=== PATIENT | female | born 1940 | race Caucasian/White ===

== ENCOUNTER → 2017-10-10 17:15 | Observation (INO) ==
[2017-10-09 13:33] VITALS: BMI 25.7
--- NOTE | 2017-10-09 14:07 | Cardiology History & Physical ---
History of Present Illness Chief complaint: Dyspnea on exertion HPI: Mary Jane is a 77 year old female who is known to Dr. Koroma with a history of LINDSEY , HTN, Pulmonary HTN, nonrheumatic mitral and tricuspid regurgitation and precordial pain. She was last seen in the clinic by Dr. Koroma on 10/06/17 when she was referred to him for an abnormal echo and complaints of SOA with walking or inclines. She was scheduled for an outpatient VQ scan today which was probable for pulmonary embolism, followed by an echo where her PAP was found to be elevated. She is admitted for observation and anticoagulation with Lovenox. Review of Systems - Constitutional Constitutional: Present: fatigue. Absent: chills, fever(s) - EENMT Eyes: Absent: change in vision Balance: Absent: vertigo Mouth/Throat: Absent: sore throat - Cardiovascular Cardiovascular: Present: chest pain, dyspnea on exertion. Absent: palpitations , syncope, orthopnea, edema Rhythm: Absent: abnormal rhythm Vascular: Absent: pedal edema - Respiratory Respiratory: Present: dyspnea, dyspnea on exertion. Absent: cough - Gastrointestinal Gastrointestinal: Absent: constipation, diarrhea, nausea, vomiting - Genitourinary Genitourinary: Absent: dysuria - Musculoskeletal Musculoskeletal: Absent: myalgias - Integumentary/Breasts Integumentary: Absent: rash - Neurological Neurological: Absent: dizziness - Endocrine Endocrine: Absent: palpitations PFSH Patient Stated Medical History Cataracts Yes: sadia eyes Hypertension Yes Other Cardiology Yes: mitral valve prolapse Pulmonary Embolism Yes: current admisson Gastroesophageal Reflux Yes: no meds for it Disease Other Musculoskeletal Yes: arthritis Chronic Pelvic Pain Yes: from previous pelvis fx Surgical History: Hysterectomy. Bunionectomy. Hip replacement. cataract extraction Family History: Father - [place] Mother - CHF, HLD - Social History Smoking status: Never smoker Substance use type: does not use Alcohol intake frequency: holidays/special occasions only Housing: house Household members: none Current occupational status: retired Current residence: Apartment/Private Home Medications Home Medications Medication Instructions Recorded Confirmed Type Aspirin 1 tab PO DAILY #0 tab 05/07/15 10/09/17 History Atenolol 25 mg PO HS #0 tab 05/07/15 10/09/17 History Calcium Carbonate/Vitamin D3 600 mg PO DAILY #0 05/07/15 10/09/17 History [Calcium 600-Vit D3 200 Tablet] Cholecalciferol (Vitamin D3) 1 tab PO DAILY #0 05/07/15 10/09/17 History [Vitamin D3] Lisinopril 20 mg PO DAILY #0 tab 05/07/15 10/09/17 History Niacin (Inositol Niacinate) 1 cap PO DAILY #0 05/07/15 10/09/17 History [Niacin 500 mg Capsule] [place]-3 Fatty Acids/Fish Oil [Fish 1,000 mg PO DAILY #0 cap 05/07/15 10/09/17 History Oil 1,000 mg Capsule] hydroCHLOROthiazide 1 tab PO WB #0 tab 05/07/15 10/09/17 History [Hydrochlorothiazide] Atenolol [Tenormin] 25 mg PO AM 10/09/17 10/09/17 History Biotin 5,000 mcg PO DAILY 10/09/17 10/09/17 History Magnesium 250 mg PO DAILY 10/09/17 10/09/17 History Mecobalamin [B-12] 1,000 mcg SL DAILY 10/09/17 10/09/17 History Melatonin/Pyridoxine HCl (B6) 5 mg PO HS 10/09/17 10/09/17 History [Melatonin 5 mg Tablet] Multivitamin/Iron/Folic Acid 1 each PO DAILY 10/09/17 10/09/17 History [Centrum Adults Tablet] Potassium 99 mg PO DAILY 10/09/17 10/09/17 History Allergies Allergy/AdvReac Type Severity Reaction Status Date / Time No Known Allergies Allergy Verified 10/09/17 14:10 Exam Vital signs: Temperature 96.6 F L 10/09/17 13:40 Pulse Rate 53 L 10/09/17 13:40 Respiratory Rate 16 10/09/17 13:40 Blood Pressure 147/78 H 10/09/17 13:40 Pulse Oximetry 95 10/09/17 13:40 - Constitutional no acute distress, well nourished, cooperative - Routine HEENT Exam Head: Present: normocephalic ENT: Present: mucous membranes moist - Routine Neck Exam Absent: JVD, carotid bruit - Routine Chest/Breast/Axilla Exam Chest wall: Absent: tenderness - Routine Respiratory Exam Present: dyspnea, CTA bilaterally. Absent: rales, wheezes - Routine Cardiovascular Exam Present: RRR, murmur (II/). Absent: JVD - Routine Abdominal Exam Present: soft, normoactive bowel sounds - Routine Extremities Exam Present: no edema - Routine Skin Exam Present: intact, dry, warm - Routine Neurological Exam Present: alert, oriented X3 - Routine Psychiatric Exam Present: normal affect, normal thought process Results 10/10/17 01:16 10/10/17 01:16 Intake and Output 10/08/17 10/09/17 10/09/17 22:59 06:59 14:59 Other: Weight 134 lb 0.657 oz Patient Weight 10/10/17 06:59 Weight 134 lb 0.657 oz - Imaging and Cardiology Echo: pending Imaging & Cardiology Narrative: 10/09/17 14:12 Date of Exam: 10/09/17 Ordering Provider: Denis Koroma MD Type of Exam(s): XR chest 1V for NM procedure Reason for Exam(s): R06.02 SOB EXAM: Ventilation-Perfusion Scintigraphy. DATE: 10/09/2017 12:00 AM INDICATIONS: R06.02 SOB COMPARISON: Chest x-ray dated 10/09/2017 RADIOPHARMACEUTICAL: 44 mCi Technetium 99 M DTPA and 6.5 mCi Tc-99m MAA IV. FINDINGS: The ventilation images demonstrate near uniform distribution of activity on the initial breath and equilibrium phase images. The perfusion images demonstrate at least moderate size three wedge-shaped pleural-based mismatch photopenic defects in the left lung. There is a moderate size wedge-shaped pleural-based mismatch defect in the superior segment of the right lower lobe and a moderate to large wedge-shaped pleural-based mismatch defect in the right middle lobe. IMPRESSION: High probability for pulmonary embolism. EKG interpretations - EKG EKG results cardiology: sinus rhythm EKG shows: bradycardia - Blocks, axis, hypertrophy, ST abn AV and intraventricular conduction: 1 AV block Hospital Course This is a general summary of the patient's hospital course. For more details refer to the complete medical record. Time spent with patient: 25 - 35 minutes DVT Prophylaxis: Lovenox, Xarelto Assessment and Plan - Attestation Attestation Narrative: 10/10/17 13:06 Recommendation After examining the patient I agree with the above assessment. I am involved in the formulation of the patient's plan of care. - Assessment and Plan (1) Pulmonary embolism Current visit: Yes Status: Acute VQ Scan: High probability for pulmonary embolism. Echo with increased PAP - Admit for observation and anticoagulation - Start Lovenox 1mg/kg SQ then Xarelto 15mg BID for 21 days and then 20mg daily for skilled nursing coagulation. - Serial troponin (2) Shortness of breath Current visit: Yes Status: Chronic Reports ongoing LINDSEY for the past 1 year. - VQ Scan: High probability for pulmonary embolism. - Admit for observation - Plan to proceed with scheduled right and left heart cath on 10/20/17 (3) Essential (primary) hypertension Current visit: Yes Status: Chronic Continue home meds (4) Other secondary hypertension Current visit: Yes Status: Chronic (5) Nonrheumatic mitral valve insufficiency Current visit: Yes Status: Chronic (6) Non-rheumatic tricuspid valve insufficiency Current visit: Yes Status: Chronic - Assessment and Plan PE: VQ Scan: High probability for pulmonary embolism. Echo with increased PAP - Admit for observation and anticoagulation - Start Lovenox 1mg/kg SQ then Xarelto 15mg BID for 21 days and then 20mg daily for skilled nursing coagulation. - Serial troponin Dyspnea: Reports ongoing LINDSEY for the past 1 year. - VQ Scan: High probability for pulmonary embolism. - Admit for observation - Plan to proceed with scheduled right and left heart cath on 10/20/17 HTN: Continue home meds
--- OUTSIDE RECORDS SUMMARY | 2017-10-09 14:45 | External Medical Summary ---
:1940 Author Organization [employer] Care Team Providers Name Role Phone Dwight Meeks Provider Role Unavailable Allergies No Known Allergies Problems Problem Type Condition Code Onset Dates Condition Status Problem Essential (primary) hypertension I10 Active Problem Atrial Tachycardia 427.89 Active Problem Other specified cardiac arrhythmias I49.8 Active Problem Hypertension 401.9 Active Assessment Other specified cardiac arrhythmias I49.8 Active Medications Medication Code System Code Instructions Start Date End Date Status Dosage Atenolol [facility] [address] 50 MG Orally Once Jul 13, 1 tablet -01 a day 2014 Results No Known Results Summary Purpose [employer] Submission
[2017-10-09] MEDS: RIVAROXABAN 15 MG TABLET PO SCH (21:18)
[2017-10-09 23:58] VITALS: RESP 16
[2017-10-10] MEDS: ATENOLOL 50 MG TABLET PO SCH ×2 (07:15→08:38)
[2017-10-10 07:42] VITALS: BP 139/90; TEMP 96.6; O2SAT 94
[2017-10-10] MEDS: RIVAROXABAN 15 MG TABLET PO SCH (08:38)
--- NOTE | 2017-10-10 12:10 | Discharge Summary ---
<Carmen Cabral - Last Filed: 10/10/17 15:57> Discharge Information Date of admission: 10/09/17 13:20 Anticipated date of discharge: 10/10/17 Attending Physician: Denis Koroma MD Primary care physician: Emma Blackburn MD - Discharge Diagnosis (1) Shortness of breath Status: Chronic (2) Essential (primary) hypertension Status: Chronic (3) Other secondary hypertension Status: Chronic (4) Nonrheumatic mitral valve insufficiency Status: Chronic (5) Non-rheumatic tricuspid valve insufficiency Status: Chronic (6) Pulmonary embolism Status: Acute - Laboratory Labs: 10/10/17 01:16 10/10/17 01:16 Laboratory Results - last 24 hr 10/09/17 10/09/17 10/09/17 14:51 14:51 19:56 WBC 4.9 RBC 4.63 Hgb 14.7 Hct 43.7 MCV 94.4 MCH 31.7 MCHC 33.6 RDW Std Deviation 41.9 Plt Count 280 MPV 9.8 Immature Gran % (Auto) 0.2 Neut % (Auto) 55.9 Lymph % (Auto) 31.2 [place] % (Auto) 9.0 Eos % (Auto) 3.1 Baso % (Auto) 0.6 Neut # (Auto) 2.7 Lymph # (Auto) 1.5 [place] # (Auto) 0.4 Eos # (Auto) 0.2 Baso # (Auto) 0.0 Abs Immat Gran (auto) 0.01 Turbidity < 20 Sodium 140 Potassium 3.8 Chloride 102 Carbon Dioxide 27 Anion Gap 11 BUN 18.0 H Creatinine 0.8 GFR Calculation 69 BUN/Creatinine Ratio 23 Glucose 88 Calculated Osmolality 270 Calcium 9.9 Magnesium Icterus Index < 2 Troponin I < 0.012 < 0.012 Specimen Hemolysis 22 < 15 10/10/17 10/10/17 10/10/17 01:16 01:16 01:16 WBC 4.7 RBC 4.39 Hgb 14.0 Hct 41.6 MCV 94.8 MCH 31.9 MCHC 33.7 RDW Std Deviation 41.7 Plt Count 273 MPV 9.2 L Immature Gran % (Auto) Neut % (Auto) Lymph % (Auto) [place] % (Auto) Eos % (Auto) Baso % (Auto) Neut # (Auto) Lymph # (Auto) [place] # (Auto) Eos # (Auto) Baso # (Auto) Abs Immat Gran (auto) Turbidity < 20 Sodium 138 Potassium 3.8 Chloride 102 Carbon Dioxide 27 Anion Gap 9 BUN 18.0 H Creatinine 0.8 GFR Calculation 69 BUN/Creatinine Ratio 23 Glucose 88 Calculated Osmolality 267 Calcium 9.6 Magnesium 1.8 Icterus Index < 2 Troponin I < 0.012 Specimen Hemolysis < 15 < 15 - Radiology Radiology: Date of Exam: 10/09/17 Ordering Provider: Denis Koroma MD Type of Exam(s): NM pul vent and perfuse Reason for Exam(s): R06.02 Shortness of breath EXAM: NM pul vent and perfuse HISTORY: R06.02 Shortness of breath COMPARISON: Chest x-ray dated 10/09/2017. TECHNIQUE: With administration of approximately 44 mCi of technetium 99m DTPA, ventilation images of the lungs were obtained in multiple projections. Then, approximately 6.5 mCi of Technetium 99m MAA was administered and imaging of the lungs were obtained in multiple projections. FINDINGS: The ventilation portion of the exam shows homogeneous uptake of the radiopharmaceutical throughout both lung [place]. The perfusion images demonstrate 3 moderate size pleural based wedge-shaped mismatch perfusion defects. There are two moderate-sized pleural-based wedge-shaped mismatch perfusion defects in the right lung. IMPRESSION: 1. High probability for pulmonary embolus. A preliminary report was called to Dr. Koroma's nurse immediately following the initial review of this examination 10/09/2017. History of Present Illness HPI: Mary Jane is a 77 year old female who is known to Dr. Koroma with a history of LINDSEY , HTN, Pulmonary HTN, nonrheumatic mitral and tricuspid regurgitation and precordial pain. She was last seen in the clinic by Dr. Koroma on 10/06/17 when she was referred to him for an abnormal echo and complaints of SOA with walking or inclines. She was scheduled for an outpatient VQ scan today which was probable for pulmonary embolism, followed by an echo where her PAP was found to be elevated. She is admitted for observation and anticoagulation with Lovenox. Hospital Course This is a general summary of the patient's hospital course. For more details refer to the complete medical record. Hospital course: PE: VQ Scan: High probability for pulmonary embolism. Echo with increased PAP - Admit for observation and anticoagulation - Start Lovenox 1mg/kg SQ then Xarelto 15mg BID for 21 days and then 20mg daily for blow molder coagulation. - Serial troponin Dyspnea: Reports ongoing LINDSEY for the past 1 year. - VQ Scan: High probability for pulmonary embolism. - Admit for observation - Plan to proceed with scheduled right and left heart cath on 10/20/17 HTN: Continue home meds Time spent with patient: 25 - 35 minutes DVT Prophylaxis: Lovenox, Xarelto Exam Vital signs: Temperature 96.6 F L 10/10/17 07:41 Pulse Rate 65 10/10/17 08:00 Respiratory Rate 16 10/10/17 07:41 Blood Pressure 139/90 H 10/10/17 07:41 Pulse Oximetry 94 10/10/17 07:41 - Constitutional no acute distress, well nourished, cooperative - Routine HEENT Exam Head: Present: normocephalic ENT: Present: mucous membranes moist - Routine Neck Exam Absent: JVD, carotid bruit - Routine Chest/Breast/Axilla Exam Chest wall: Absent: tenderness - Routine Respiratory Exam Present: CTA bilaterally. Absent: rales, wheezes - Routine Cardiovascular Exam Present: RRR, no murmur. Absent: JVD - Routine Abdominal Exam Present: soft, normoactive bowel sounds - Routine Extremities Exam Present: no edema, pulses intact - Routine Skin Exam Present: intact, dry, warm - Routine Neurological Exam Present: alert, oriented X3 - Routine Psychiatric Exam Present: normal affect, normal thought process Results 10/10/17 01:16 10/10/17 01:16 Cardiac Enzymes 10/09/17 10/09/17 10/10/17 Range/Units 14:51 19:56 01:16 Troponin I < 0.012 < 0.012 < 0.012 (0-0.12) ng/ml CBC 10/09/17 10/10/17 Range/Units 14:51 01:16 WBC 4.9 4.7 (4.5-11.0) T/MM3 RBC 4.63 4.39 (4.00-5.20) M/MM3 Hgb 14.7 14.0 (12-16) GM/DL Hct 43.7 41.6 (36-46) % Plt Count 280 273 (130-400) T/MM3 Neut # (Auto) 2.7 (1.8-7.7) T/MM3 Lymph # (Auto) 1.5 (1-4.8) T/MM3 [place] # (Auto) 0.4 (0-0.8) T/MM3 Eos # (Auto) 0.2 (0-0.5) T/MM3 Baso # (Auto) 0.0 (0-0.2) T/MM3 Comprehensive Metabolic Panel 10/09/17 10/10/17 Range/Units 14:51 01:16 Sodium 140 138 (134-144) MEQ/L Potassium 3.8 3.8 (3.6-5) MEQ/L Chloride 102 102 (98-107) MEQ/L Carbon Dioxide 27 27 (22-30) MEQ/L BUN 18.0 H 18.0 H (7-17) MG/DL Creatinine 0.8 0.8 (0.7-1.2) MG/DL Glucose 88 88 (65-110) MG/DL Calcium 9.9 9.6 (8.4-10.2) MG/DL Intake and Output 10/09/17 10/10/17 10/10/17 22:59 06:59 14:59 Intake Total 200 / 200 300 / 300 190 / 190 Output Total 1050 / 1050 500 / 500 Balance -850 / -850 -200 / -200 190 / 190 Intake: Oral 200 / 200 300 / 300 190 / 190 Output: Urine 1050 / 1050 500 / 500 Other: Urine Appearance Clear Clear Urine Color Yellow Yellow Urine Odor Normal Normal Weight 133 lb 9.602 oz Patient Weight 10/11/17 06:59 Weight 133 lb 9.602 oz - Imaging and Cardiology Imaging & Cardiology Narrative: Date of Exam: 10/09/17 Type of Exam(s): US echo doppler complete DATE OF PROCEDURE October 09, 2017 This is a two-dimensional echo with spectral Doppler, color-flow and M-mode. It was obtained in a patient with shortness of breath and pulmonary embolism. Left atrial dimension is normal. Left ventricle end-diastolic dimension is normal. Left ventricle wall thickness is normal. LV systolic function is normal with ejection fraction of 73%. Right atrium is normal. Right ventricle is normal. Aortic root dimension is normal. Mitral valve is morphologically normal with [id number] mitral regurgitation. Aortic valve is a trileaflet structure with mild aortic insufficiency and no stenosis. Tricuspid valve shows lqjzfknx-[id number] tricuspid regurgitation with severe pulmonary hypertension with estimated pulmonary artery systolic pressure of 75. Pulmonary valve shows [id number] pulmonary insufficiency. There is no pericardial effusion. IMPRESSION 1. Normal LV systolic function with ejection fraction of 73%. 2. Adyvfbow-rc-kfnivt mitral regurgitation. 3. Mild aortic insufficiency. 4. Uxfzefbo-kx-hlbthi tricuspid regurgitation with severe pulmonary hypertension with estimated pulmonary artery systolic pressure of 75. 5. Opsf-vk-gqoqqczx pulmonary insufficiency. 10/10/17 15:59 Discharge Plan - Med Rec/Dispo Referrals/Follow Up: Denis Koroma MD [Physician] - 10/20/17 Prescriptions: New Rivaroxaban [Xarelto] 20 mg PO WS #30 tab Continue Calcium Carbonate/Vitamin D3 [Calcium 600-Vit D3 200 Tablet] 600 mg PO DAILY #0 Cholecalciferol (Vitamin D3) [Vitamin D3] 1 tab PO DAILY #0 Lisinopril 20 mg PO DAILY #0 tab Magnesium 250 mg PO DAILY Multivitamin/Iron/Folic Acid [Centrum Adults Tablet] 1 each PO DAILY Melatonin/Pyridoxine HCl (B6) [Melatonin 5 mg Tablet] 5 mg PO HS Atenolol [Tenormin] 25 mg PO AM [place]-3 Fatty Acids/Fish Oil [Fish Oil 1,000 mg Capsule] 1,000 mg PO DAILY # 0 cap Niacin (Inositol Niacinate) [Niacin 500 mg Capsule] 1 cap PO DAILY #0 hydroCHLOROthiazide [Hydrochlorothiazide] 1 tab PO WB #0 tab Atenolol 25 mg PO HS #0 tab Biotin 5,000 mcg PO DAILY Potassium 99 mg PO DAILY Mecobalamin [B-12] 1,000 mcg SL DAILY Discontinued Aspirin 1 tab PO DAILY #0 tab - Disposition 01 Discharged Home, Self-Care - Dismissal Complete Discharge Instructions are:: Complete <Denis Koroma - Last Filed: 10/13/17 12:59> Discharge Information Date of admission: 10/09/17 13:20 Attending Physician: Denis Koroma MD Primary care physician: Emma Blackburn MD - Discharge Diagnosis (1) Shortness of breath Status: Chronic (2) Essential (primary) hypertension Status: Chronic (3) Other secondary hypertension Status: Chronic (4) Nonrheumatic mitral valve insufficiency Status: Chronic (5) Non-rheumatic tricuspid valve insufficiency Status: Chronic (6) Pulmonary embolism Status: Acute - Laboratory Labs: 10/10/17 01:16 10/10/17 01:16 Hospital Course This is a general summary of the patient's hospital course. For more details refer to the complete medical record. Exam Vital signs: Temperature 96.6 F L 10/10/17 07:41 Pulse Rate 69 10/10/17 16:00 Respiratory Rate 16 10/10/17 07:41 Blood Pressure 139/90 H 10/10/17 07:41 Pulse Oximetry 94 10/10/17 07:41 Results 10/10/17 01:16 10/10/17 01:16 Attestation Narriative - Attestation Attestation Narrative: 10/13/17 12:59 Recommendation After examining the patient I agree with the above assessment. I am involved in the formulation of the patient's plan of care.
[2017-10-10 16:23] VITALS: PULSE 69
[~2017-10-10 17:15] MED LIST: ATENOLOL 50 MG TABLET PO SCH; BIOTIN 5000 MCG PO SCH; CALCIUM 600 + VIT D 400 TABLET PO SCH; ENOXAPARIN 150 MG/ML INJECTION SQ SCH; ENOXAPARIN 60 MG/0.6 ML INJECTION SQ SCH; LISINOPRIL 10 MG TABLET PO SCH; MAGNESIUM OXIDE 400 MG TABLET PO SCH; MECOBALAMIN 1000 MCG PO SCH; MELATONIN 5 MG TABLET PO SCH; MULTI-VITAMIN + MINERAL TABLET PO SCH; NIACIN ER 500 MG TABLET PO SCH; OMEGA-3 ACID ESTERS 1 GM CAPSULE PO SCH; SALINE FLUSH 10ml SYRINGE IV PRN
== END | disposition home or self-care (01) ==
LOC: MED
PROVIDERS: ADMIT Internal Medicine Cardiovascular Disease; ATTEND Internal Medicine Cardiovascular Disease